=== PATIENT | male | born 1970 | race Caucasian/White ===

== ENCOUNTER 2018-07-06 01:41 | Emergency (ER) | payer BC ==
[~2018-07-06] VITALS: Ht 180.3 cm; Wt 84.1 kg
[~2018-07-06 01:41] MED LIST: NEXIUM40 MG PO; OMEPRAZOLE20 MG PO; PAXIL40 MG PO; PENTASA500 MG PO
[2018-07-06 02:54] LABS: HEMATOCRIT 42.2 % (38.0-50.0); HEMOGLOBIN 14.4 G/DL (12.5-16.6); MCH 30.3 PG (29.0-34.0); MCHC 34.1 G/DL (30.0-36.0); MCV 88.7 FL (86-99); PLATELET COUNT 287 K/uL (156-360); RBC DIS.WIDTH-CV 12.6 % (11.8-14.6); RBC DIS.WIDTH-SD 41.4 % (39-53); RED BLOOD COUNT 4.76 M/uL (4.00-5.50); WHITE BLOOD COUNT 10.9 K/uL (4.1-10.2)
[2018-07-06 03:07] LABS: CHLORIDE 104 mEq/L (99-109); POTASSIUM 3.3 mEq/L (3.7-5.4); SODIUM 137 mEq/L (136-147)
[2018-07-06 03:10] LABS: GLUCOSE 112 mg/dL (70-99); TOTAL PROTEIN 8.4 g/dL (6.4-8.3)
[2018-07-06 03:12] LABS: TOTAL BILIRUBIN 0.4 mg/dL (0.0-1.0)
[2018-07-06 03:13] LABS: ALKALINE PHOSPHATASE 85 IU/L (3-129); GFR ESTIMATE (CALCULATED) > 59 mL/min/ (58.99-99999)
[2018-07-06 03:14] LABS: UREA NITROGEN (BUN) 13 mg/dL (9-23)
[2018-07-06 03:15] LABS: AST (GOT) 20 IU/L (2-34)
[2018-07-06 03:16] LABS: ALT (GPT) 16 IU/L (3-49)
[2018-07-06] MEDS ORDERED: TYLENOL EXTRA500 MG PO (12:25)
[2018-07-06] MEDS ORDERED: FLONASE16 G1 BOTH NARES (12:25)
[2018-07-06] MEDS ORDERED: REMICADE10 MG/ML IV (12:28)
[2018-07-06 19:11] VITALS: BP 122/88
== END 2018-07-06 19:19 | disposition short-term general hospital (02) ==
LOC: EME 01:41
DX: K63.2 Fistula of intestine (principal); L02.211 Cutaneous abscess of abdominal wall; K50.90 Crohn's disease, unspecified, without complications; Z93.3 Colostomy status; Z90.49 Acquired absence of other specified parts of digestive tract
CPT/HCPCS: 74177; 80053; 81003; 83605; 85027; 87040; 99281; 99285; J2270; J2405; J2543; J3010; J3370; J7030